=== PATIENT | female | born 1995 | race Caucasian/White ===

== ENCOUNTER 2022-01-15 08:14 | Emergency (ER) | payer OTHER ==
[~2022-01-15] VITALS: Ht 157.5 cm; Wt 94.3 kg
[~2022-01-15 08:14] MED LIST: PRO125RS
[2022-01-15] MEDS ORDERED: ACETAMINOPHEN 500 MG TAB PO ONE (08:15)
[2022-01-15 08:16] VITALS: BP 150/83
[2022-01-15] MEDS ORDERED: diphenhdrAMINE HCL 50 MG/1 ML VL IM ONE (09:00)
[2022-01-15] MEDS ORDERED: cefTRIAXone SOD 1,000 MG VL IM ONE (09:15)
[2022-01-15] MEDS ORDERED: AZIT500T66 PO (10:18)
[2022-01-15] MEDS ORDERED: IBUP600T27 PO (10:18)
[2022-01-15] MEDS ORDERED: PROM1SOL4 PO (10:18)
== END 2022-01-15 10:19 | disposition home or self-care (01) ==
LOC: ER 08:14
DX: J03.90 Acute tonsillitis, unspecified (principal); Z20.822 Contact with and (suspected) exposure to COVID-19
CPT/HCPCS: 36415; 71045; 87426; 96372; 99284; J0696; J1200

== ENCOUNTER 2023-01-25 22:59 | Emergency (ER) | payer MEDICAID ==
[~2023-01-25] VITALS: Ht 154.9 cm; Wt 84.0 kg
[~2023-01-25 22:59] MED LIST changes: +AZIT500T66 PO; +IBUP-1454 PO; +PROM1SOL4 PO
[2023-01-26] MEDS ORDERED: ERY05OO OP (00:22)
[2023-01-26 00:31] VITALS: BP 162/85
== END 2023-01-26 00:40 | disposition home or self-care (01) ==
LOC: ER 23:07
DX: H10.33 Unspecified acute conjunctivitis, bilateral (principal); Z90.49 Acquired absence of other specified parts of digestive tract; Z88.1 Allergy status to other antibiotic agents